=== PATIENT | female | born 1995 | race Two or more races ===

== ENCOUNTER 2016-05-27 12:10 | Emergency (ER) | payer OTHER ==
[~2016-05-27] VITALS: Ht 162.6 cm; Wt 78.0 kg
[~2016-05-27 12:10] MED LIST: PNV1TABL25 PO
[2016-05-27 12:45] VITALS: BP 134/87
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
[2016-05-27 13:13] LABS: NEG OBC UR NEG; POS OBC UR POS
[2016-05-27 13:19] LABS: BILIRUBIN,URINE NEGATIVE (NEG); GLUCOSE,URINE NEGATIVE (NEG); NITRITE,URINE NEGATIVE (NEG); PROTEIN,URINE NEGATIVE (NEG-TRACE)
[2016-05-27] MEDS ORDERED: HYDROCODONE/APAP 5/325MG TABLET. PO ONE (13:30)
[2016-05-27 13:38] LABS: BACTERIA,URINE FEW /HPF (0-FEW); RBC,URINE 0 /HPF (0-2); SQUAMOUS EPITHELIAL CELL,UR MOD /LPF; WBC,URINE 0 /HPF (0-4)
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
[2016-05-27] MEDS ORDERED: HYDR-971 PO (13:50)
[2016-05-27] MEDS ORDERED: ORPH100T PO (13:50)
== END 2016-05-27 13:53 | disposition home or self-care (01) ==
LOC: ER 12:10
DX: S16.1XXA Strain of muscle, fascia and tendon at neck level, initial encounter (principal); V43.53XA Car driver injured in collision with pick-up truck in traffic accident, initial encounter; Y92.413 State road as the place of occurrence of the external cause; Y93.89 Activity, other specified; Y99.8 Other external cause status
CPT/HCPCS: 72040; 81001; 81025; 99285

== ENCOUNTER 2016-09-30 11:59 | Emergency (ER) | payer OTHER ==
[~2016-09-30] VITALS: Ht 162.6 cm; Wt 79.4 kg
[~2016-09-30 11:59] MED LIST changes: +HYDR-971 PO; +ORPH100T PO
[2016-09-30 12:18] VITALS: BP 147/76
[2016-09-30] MEDS ORDERED: ETOMIDATE 20 MG/10 ML VIAL. IV ONE (13:00)
--- NOTE | 2016-09-30 13:31 | PHYS DOC ---
Past Medical History Past Medical History: No Pertinent History Past Surgical History: No Surgical History, Other Additional Past Surgical Histo: left foot surgery Alcohol Use: None Drug Use: None Adult General Chief Complaint Chief Complaint: MECHANICAL FALL HPI HPI Patient is a 21 year old female who presents with vaginal bleeding after a fall. The patient states last evening she slipped on a wet floor, fell backwards onto her buttocks. No syncope Denies head trauma or loss of consciousness. Denies any back pain. States last night she had light pink vaginal spotting which continued this morning. Has not had use any pads or tampons. Denies abdominal pain or cramping. LMP was 09/14. She thinks she could be . Reports history of irregular menses. Review of Systems Review of Systems Constitutional: Denies fever or chills HENT: Denies nasal congestion or sore throat Respiratory: Denies cough or shortness of breath Cardiovascular: Denies chest pain GI: Denies abdominal pain, nausea, vomiting, bloody stools : Denies dysuria or hematuria, reports vaginal bleeding Musculoskeletal: Denies back pain or joint pain Integument: Denies rash Neurologic: Denies headache Current Medications Current Medications Current Medications Medications (Trade) Dose Ordered Sig/Woodrow Start Time Stop Time Status Last Admin Dose Admin Etomidate (Amidate) 20 mg 1X ONCE 09/30/16 13:00 09/30/16 13:01 Cancel Allergies Allergies Allergies Coded Allergies Type Severity Reaction Last Updated Verified No Known Drug Allergies 07/09/13 No Physical Exam Physical Exam Constitutional: obese, no acute distress, non-toxic appearance. HENT: Normocephalic, atraumatic, bilateral external ears normal, oropharynx moist, nose normal. Eyes: conjunctiva normal, no discharge. Cardiovascular: RRR, no murmurs, no edema. Lungs & Thorax: LCTAB, no wheezing, no respiratory distress. Abdomen: soft, nontender, nondistended. : normal appearing female external genitalia, normal appearing cervix with closed os, no blood in vaginal vault or from the os, no CMT/adnexal tenderness Skin: Warm, dry, no erythema, no rash. Back: No CVA or spinal tenderness. Extremities: No tenderness, no edema. Neurologic: Alert and oriented X 3 Current Patient Data Vital Signs Vital Signs Date Time Temp Pulse Resp B/P (MAP) Pulse Ox O2 Delivery O2 Flow Rate FiO2 5/13/17 12:18 97.6 91 14 98 Room Air 97.6 Lab Values Laboratory Tests Test 09/30/16 11:28 09/30/16 12:10 POC Urine HCG, Qualitative Hcg negative (Negative) Urine Collection Type Unknown Urine Color Yellow Urine Clarity Clear Urine pH 5.5 Urine Specific [place] 1.020 Urine Protein Negative mg/dL (NEG-TRACE) Urine Glucose (UA) Negative mg/dL (NEG) Urine Ketones (Stick) Negative mg/dL (NEG) Urine Blood Large (NEG) Urine Nitrite Negative (NEG) Urine Bilirubin Negative (NEG) Urine Urobilinogen Dipstick 0.2 mg/dL (0.2 mg/dL) Urine Leukocyte Esterase Negative (NEG) Urine RBC 3-5 /HPF (0-2) Urine WBC Occ /HPF (0-4) Urine Squamous Epithelial Cells Mod /LPF Urine Bacteria Few /HPF (0-FEW) Urine Mucus Mod /LPF EKG EKG [] Radiology/Procedures Radiology/Procedures [] Course & Med Decision Making Course & Med Decision Making Pertinent Labs and Imaging studies reviewed. (See chart for details) The patient presents with vaginal bleeding after a fall. No significant bleeding seen on exam. test negative. No other injuries identified. Could be irregular bleeding related to menses. Recommend follow-up with Dr. Eddy in the gynecology clinic for other concerns. May retake home test if concern for remains. Return to the emergency department for heavy bleeding requiring use of greater than 1 pad per hour, severe abdominal pain, any otherwise worsening condition. Discharged home in stable condition. [] Dragon Disclaimer Dragon Disclaimer This electronic medical record was generated, in whole or in part, using a voice recognition dictation system. Departure Departure Impression: Primary Impression: Vaginal bleeding Disposition: HOME, SELF-CARE Condition: STABLE Referrals: RICHAR KELLY MD Patient Instructions: Metrorrhagia, [id number] Additional Instructions: You were seen in the emergency department today for vaginal bleeding after a fall. test was negative & there was no sign of serious injury. Follow up with Dr. Eddy in the gyncology clinic for other concerns. Come back for heavy bleeding requiring use of more than 1 pad per hour, severe abdominal pain, any otherwise worsening condition. BRUNILDA CRUZ MD September 30, 2016 13:31
[2016-09-30 13:38] LABS: BILIRUBIN,URINE NEGATIVE (NEG); GLUCOSE,URINE NEGATIVE (NEG); NITRITE,URINE NEGATIVE (NEG); PH,URINE 5.5; PROTEIN,URINE NEGATIVE (NEG-TRACE); UROBILINOGEN,URINE 0.2 mg/dL (0.2 mg/dL)
[2016-09-30 14:01] LABS: BACTERIA,URINE FEW /HPF (0-FEW); SQUAMOUS EPITHELIAL CELL,UR MOD /LPF; WBC,URINE OCC /HPF (0-4)
--- NOTE | 2016-10-04 10:29 | VNOTE ---
CALL BACK NOTE CALL BACK Microbiology 09/30/16 Wet Prep - Final, Complete Spoke with patient in regards to Chlamydia been positive. She was instructed that she was not treated here in the emergency department and Zithromax would need to be called in for her. She provided me the pharmacy is [facility] at [address] [place] [address]. Prescription was called in for her she was also provided information in regards to contacting her sexual partners in having been treated as well. She was also instructed to not have any sexual intercourse with her sexual partners for 2 weeks until after they've been treated. She was also instructed that she may not have sexual intercourse with anybody else for 2 weeks. Patient states understanding. PEGGY ZARATE FUGITIVE DETECTIVE October 04, 2016 10:29
== END 2016-09-30 14:25 | disposition home or self-care (01) ==
LOC: ER 12:43
DX: N93.9 Abnormal uterine and vaginal bleeding, unspecified (principal); W01.0XXA Fall on same level from slipping, tripping and stumbling without subsequent striking against object, initial encounter; Y93.89 Activity, other specified; Y99.8 Other external cause status; Y92.89 Other specified places as the place of occurrence of the external cause
CPT/HCPCS: 81001; 84703; 87491; 87591; 99284; Q0111; 81025

== ENCOUNTER → 2018-01-03 | Outpatient (CLI) | payer MEDICAID | END | disposition home or self-care (01) | LOC: LAB 12:51 | PROVIDERS: ATTEND Obstetrics & Gynecology | DX: N93.9 Abnormal uterine and vaginal bleeding, unspecified (principal) | CPT/HCPCS: 36415; 84702 ==

== ENCOUNTER → 2018-01-04 | Outpatient (CLI) | payer MEDICAID ==
[~2018-01-04] MED LIST changes: +IOHEXOL 180 MG/ML 10 ML VIAL. INT UTERIN ONE
--- NOTE | 2018-01-04 18:34 | KCIC ---
Hysterosalpingogram 01/04/2018 CLINICAL HISTORY: Infertility. Abnormal uterine bleeding. TECHNIQUE: After the risks and benefits of the procedure were explained to the patient, written informed consent was obtained. The patient was placed supine on the fluoroscopy table and a speculum was placed into the vagina. The external cervical os was identified and prepped using a Betadine solution. A 7 [place] HSG catheter was advanced into the endometrial canal of the uterus through the cervix and the balloon was inflated. 15 cc of Omnipaque 180 was then injected under fluoroscopic control. Following this study balloon was deflated and the catheter was removed as was the speculum. The patient tolerated the procedure well there were no immediate complications. The total fluoroscopic time for this study was 52 seconds. 7 digital spot radiographs were obtained. FINDINGS: The endometrial canal is within normal limits in morphology and configuration. No filling defect is seen. Both fallopian tubes are well-visualized. Free spillage of contrast into the peritoneal cavity is seen bilaterally. IMPRESSION: Negative study. Electronically signed by: Fei Posada MD (01/04/2018 6:30 PM) [id number]
== END | disposition home or self-care (01) ==
LOC: KCIC 08:58
PROVIDERS: ATTEND Obstetrics & Gynecology
DX: N93.8 Other specified abnormal uterine and vaginal bleeding (principal); N97.8 Female infertility of other origin
CPT/HCPCS: 74400; Q9965

== ENCOUNTER 2018-03-25 13:00 | Emergency (ER) | payer MEDICAID, OTHER ==
[~2018-03-25] VITALS: Ht 165.1 cm; Wt 72.1 kg
[~2018-03-25 13:00] MED LIST changes: -IOHEXOL 180 MG/ML 10 ML VIAL. INT UTERIN ONE
[2018-03-25 13:19] VITALS: BP 118/74
[2018-03-25] MEDS ORDERED: CIPR7.5D EACH EAR (14:20)
--- NOTE | 2018-03-25 14:20 | PHYS DOC ---
Past Medical History Past Medical History: No Pertinent History Past Surgical History: No Surgical History, Other Additional Past Surgical Histo: left foot surgery Alcohol Use: None Drug Use: None Adult General Chief Complaint Chief Complaint: FOREIGNBODY EAR HPI HPI Patient is a 22 year old female who presents with a bug crawling in her ear at 0400 this morning. Patient complains of right ear pain. Patient states they tried to flush it out with water. Review of Systems Review of Systems Constitutional: Denies fever or chills [] Eyes: Denies change in visual acuity, redness, or eye pain [] HENT: Denies nasal congestion or sore throat. Insect in right ear causing pain.[ ] Respiratory: Denies cough or shortness of breath [] Cardiovascular: No additional information not addressed in HPI [] GI: Denies abdominal pain, nausea, vomiting, bloody stools or diarrhea [] : Denies dysuria or hematuria [] Musculoskeletal: Denies back pain or joint pain [] Integument: Denies rash or skin lesions [] Neurologic: Denies headache, focal weakness or sensory changes [] Endocrine: Denies polyuria or polydipsia [] All other systems were reviewed and found to be within normal limits, except as documented in this note. Allergies Allergies Allergies Coded Allergies Type Severity Reaction Last Updated Verified No Known Drug Allergies 07/09/13 No Physical Exam Physical Exam Constitutional: Well developed, well nourished, no acute distress, non-toxic appearance. [] HENT: Normocephalic, atraumatic, bilateral external ears normal, oropharynx moist, no oral exudates, nose normal. Brown bug seen in right eat canal. Unable to see behind the bug. [] Eyes: PERRLA, EOMI, conjunctiva normal, no discharge. [] Neck: Normal range of motion, no tenderness, supple, no stridor. [] Cardiovascular:Heart rate regular rhythm, no murmur [] Lungs & Thorax: Bilateral breath sounds clear to auscultation [] Abdomen: Bowel sounds normal, soft, no tenderness, no masses, no pulsatile masses. [] Skin: Warm, dry, no erythema, no rash. [] Back: No tenderness, no CVA tenderness. [] Extremities: No tenderness, no cyanosis, no clubbing, ROM intact, no edema. [] Neurologic: Alert and oriented X 3, normal motor function, normal sensory function, no focal deficits noted. [] Psychologic: Affect normal, judgement normal, mood normal. [] Current Patient Data Vital Signs Vital Signs Date Time Temp Pulse Resp B/P (MAP) Pulse Ox O2 Delivery O2 Flow Rate FiO2 03/25/18 13:19 97.8 61 18 118/74 (89) 98 Room Air 97.8 EKG EKG [] Radiology/Procedures Radiology/Procedures [] Course & Med Decision Making Course & Med Decision Making Patient is a 22 year old female who presents with a bug crawling in her ear at 0400 this morning. Patient complains of right ear pain. Patient states they tried to flush it out with water. Upon examination the patient's right ear has a brown bug inside of it. It appears to be and is not moving. Patient's right ear is flushed by the nurse with diluted hydrogen peroxide with water. After flushing of the ear the bug is no longer seen in the tympanic membrane is pearly white in color. The patient ear canal is red and irritated and very painful upon examination. The nurses nor I saw the bug, out of the ear that is not seen in the ear canal any longer. Dr. Carroll then examined the ear did not see the bug. Patient is given anabiotic eardrops as a follow-up with her primary care within the next couple days to make sure she is getting better. Staff Physician Addendum: I was working in the ER during the course of this patient's visit. I was available for consultation as needed, but I was not directly involved in the care of this patient. [] Dragon Disclaimer Dragon Disclaimer This electronic medical record was generated, in whole or in part, using a voice recognition dictation system. Departure Departure Impression: Primary Impression: Acute foreign body of ear Disposition: 01 HOME, SELF-CARE Condition: STABLE Referrals: ALYCE VELASCO Jr, MD (PCP) Patient Instructions: Ear Foreign Body Additional Instructions: FOLLOW UP WITH YOUR PRIMARY CARE IF NOT GETTING BETTER. TAKE MEDICATION PRESCRIBED. Scripts Ciprofloxacin Hcl/Dexameth (CIPRODEX OTIC SUSPENSION) 7.5 Ml Drops.susp 4 DROP EACH EAR BID for 7 Days, #1 BOTTLE Prov: DANIEL COPELANDALISSON Jeff APRN 03/25/18 Problem Qualifiers Primary Impression: Acute foreign body of ear Encounter type: initial encounter Laterality: right Qualified Codes: T16.1XXA - Foreign body in right ear, initial encounter PEGGY COPELAND APRN Mar 25, 2018 14:20 GONZÁLEZ CARROLL MD Mar 29, 2018 06:41
== END 2018-03-25 14:33 | disposition home or self-care (01) ==
LOC: ER 13:00
DX: T16.1XXA Foreign body in right ear, initial encounter (principal); X58.XXXA Exposure to other specified factors, initial encounter; Y93.89 Activity, other specified; Y92.89 Other specified places as the place of occurrence of the external cause; Y99.8 Other external cause status
CPT/HCPCS: 99283; 99284

== ENCOUNTER 2018-09-05 13:19 | Emergency (ER) | payer OTHER ==
[~2018-09-05] VITALS: Ht 162.6 cm; Wt 74.8 kg
[~2018-09-05 13:19] MED LIST changes: +CIPR7.5D EACH EAR; +HYDR-3164 PO; -HYDR-971 PO
[2018-09-05 14:01] LABS: BILIRUBIN,URINE NEGATIVE (NEG); CLARITY,URINE CLOUDY; COLOR,URINE YELLOW; NITRITE,URINE NEGATIVE (NEG); PROTEIN,URINE NEGATIVE (NEG-TRACE)
[2018-09-05 14:08] LABS: BARBITURATES NEG (NEG); BENZODIAZEPINES NEG (NEG); CANNABINOIDS NEG (NEG); COCAINE NEG (NEG); METHADONE NEG (NEG); OPIATES NEG (NEG); PHENCYCLIDINE NEG (NEG)
[2018-09-05 14:09] LABS: AMPHETAMINE/METHAMPHETAMINE NEG (NEG)
[2018-09-05 14:10] LABS: AMORPHOUS SEDIMENT,UR PRESENT /HPF; BACTERIA,URINE 0 /HPF (0-FEW); RBC,URINE 0 /HPF (0-2); SQUAMOUS EPITHELIAL CELL,UR MOD /LPF; WBC,URINE 0 /HPF (0-4)
--- NOTE | 2018-09-05 14:52 | RAD ---
Early OB ultrasound study less than 14 weeks-transabdominal and transvaginal exam Clinical indications: . Abdominal pain and cramping. Transabdominal sonography: The uterus is anteverted in position. No intrauterine gestational sac is evident. Therefore, transvaginal sonography will be performed. Neither ovary is visualized by transabdominal exam. No adnexal mass is seen. Transvaginal sonography: Within the fundal portion of the uterus, a round fluid collection with an echogenic rim is seen. This may represent an early gestational sac of approximately 5 weeks gestation. No pole or heartbeat is seen. However, a small yolk sac is seen. The endometrium is thickened due to state. No uterine mass or fibroid is seen. A small amount of physiologic free fluid is seen within the cul-de-sac. The left ovary is normal and measures 2.8 cm and 1.7 cm and 2.4 cm in size. The right ovary measures 1.9 cm and 3.0 cm and 2.3 cm in size. There is a small paraovarian cyst measuring 12 mm. Color Doppler flow is seen within the right ovary. No adnexal mass is seen. IMPRESSION: Intrauterine gestational sac is seen containing a yolk sac at this point in time and therefore approximate gestational age is 5 weeks. No pole or heartbeat is seen yet. Therefore, recommend correlation with serial quantitative beta-hCG studies. Electronically signed by: Jan Dockery MD (09/05/2018 2:49 PM) [id number]
--- NOTE | 2018-09-05 15:38 | PHYS DOC ---
Past Medical History Past Medical History: No Pertinent History Past Surgical History: No Surgical History, Other Additional Past Surgical Histo: left foot surgery Alcohol Use: None Drug Use: None Adult General Chief Complaint Chief Complaint: PELVIC PAIN HPI HPI Patient is a 23 year old female with no significant medical history who presents to the ED today complaining of mild pelvic cramping that began 2 days ago. She states 2 days ago she did a test at home which was positive. She states she repeated the test again which was positive. Her last menstrual cycle was around the beginning of July. Patient denies any vaginal bleeding. She is a 2 para 1. Denies any fever, urgency frequency dysuria. Review of Systems Review of Systems Constitutional: Denies fever or chills [] Eyes: Denies change in visual acuity, redness, or eye pain [] HENT: Denies nasal congestion or sore throat [] Respiratory: Denies cough or shortness of breath [] Cardiovascular: No additional information not addressed in HPI [] GI: Reports pelvic cramping, denies nausea, vomiting, bloody stools or diarrhea [] : Denies dysuria or hematuria [] Musculoskeletal: Denies back pain or joint pain [] Integument: Denies rash or skin lesions [] Neurologic: Denies headache, focal weakness or sensory changes [] All other systems were reviewed and found to be within normal limits, except as documented in this note. Allergies Allergies Allergies Coded Allergies Type Severity Reaction Last Updated Verified No Known Drug Allergies 07/09/13 No Physical Exam Physical Exam Constitutional: Well developed, well nourished, no acute distress, non-toxic appearance. [] HENT: Normocephalic, atraumatic, bilateral external ears normal, oropharynx moist, no oral exudates, nose normal. [] Eyes: PERRLA, EOMI, conjunctiva normal, no discharge. [] Neck: Normal range of motion, no tenderness, supple, no stridor. [] Cardiovascular:Heart rate regular rhythm, no murmur [] Lungs & Thorax: Bilateral breath sounds clear to auscultation [] Abdomen: Bowel sounds normal, soft, no tenderness, no masses, no pulsatile masses. [] Patient refused pelvic exam Skin: Warm, dry, no erythema, no rash. [] Back: No tenderness, no CVA tenderness. [] Extremities: No tenderness, no cyanosis, no clubbing, ROM intact, no edema. [] Neurologic: Alert and oriented X 3, normal motor function, normal sensory function, no focal deficits noted. [] Psychologic: Affect normal, judgement normal, mood normal. [] Current Patient Data Vital Signs Vital Signs Date Time Temp Pulse Resp B/P (MAP) Pulse Ox O2 Delivery O2 Flow Rate FiO2 09/05/18 13:39 98.0 60 16 138/71 (93) 99 Room Air 98.0 Lab Values Laboratory Tests Test 09/05/18 13:31 09/05/18 13:52 Urine Collection Type Unknown Urine Color Yellow Urine Clarity Cloudy Urine pH 8.0 Urine Specific [place] 1.025 Urine Protein Negative mg/dL (NEG-TRACE) Urine Glucose (UA) Negative mg/dL (NEG) Urine Ketones (Stick) Negative mg/dL (NEG) Urine Blood Negative (NEG) Urine Nitrite Negative (NEG) Urine Bilirubin Negative (NEG) Urine Urobilinogen Dipstick 1.0 mg/dL (0.2 mg/dL) Urine Leukocyte Esterase Negative (NEG) Urine RBC 0 /HPF (0-2) Urine WBC 0 /HPF (0-4) Urine Squamous Epithelial Cells Mod /LPF Urine Amorphous Sediment Present /HPF Urine Bacteria 0 /HPF (0-FEW) Urine Mucus Marked /LPF Maternal Serum HCG Beta Subunit 8210 mIU/mL (0-5) H Urine Opiates Screen Neg (NEG) Urine Methadone Screen Neg (NEG) Urine Barbiturates Neg (NEG) Urine Phencyclidine Screen Neg (NEG) Urine Amphetamine/Methamphetamine Neg (NEG) Urine Benzodiazepines Screen Neg (NEG) Urine Cocaine Screen Neg (NEG) Urine Cannabinoids Screen Neg (NEG) Ethyl Alcohol Level < 10 mg/dL (0-10) Urine Ethyl Alcohol Neg (NEG) POC Urine HCG, Qualitative Hcg positive (Negative) EKG EKG [] Radiology/Procedures Radiology/Procedures []PROCEDURE: OB <14 WKS W/TV Early OB ultrasound study less than 14 weeks-transabdominal and transvaginal exam Clinical indications: . Abdominal pain and cramping. Transabdominal sonography: The uterus is anteverted in position. No intrauterine gestational sac is evident. Therefore, transvaginal sonography will be performed. Neither ovary is visualized by transabdominal exam. No adnexal mass is seen. Transvaginal sonography: Within the fundal portion of the uterus, a round fluid collection with an echogenic rim is seen. This may represent an early gestational sac of approximately 5 weeks gestation. No pole or heartbeat is seen. However, a small yolk sac is seen. The endometrium is thickened due to state. No uterine mass or fibroid is seen. A small amount of physiologic free fluid is seen within the cul-de-sac. The left ovary is normal and measures 2.8 cm and 1.7 cm and 2.4 cm in size. The right ovary measures 1.9 cm and 3.0 cm and 2.3 cm in size. There is a small paraovarian cyst measuring 12 mm. Color Doppler flow is seen within the right ovary. No adnexal mass is seen. IMPRESSION: Intrauterine gestational sac is seen containing a yolk sac at this point in time and therefore approximate gestational age is 5 weeks. No pole or heartbeat is seen yet. Therefore, recommend correlation with serial quantitative beta-hCG studies. Electronically signed by: Chantal Dockery MD (09/05/2018 2:49 PM) [id number] DICTATED and SIGNED BY: CHANTAL DOCKERY MD DATE: 09/05/18 1449 Course & Med Decision Making Course & Med Decision Making Pertinent Labs and Imaging studies reviewed. (See chart for details) This is a 23-year-old female patient presenting to the ED today complaining of pelvic cramping that began 2 days ago, she had a positive test 2 days ago at home, she is a 2 para 1. Positive urine hCG in the ED, beta-hCG 8210. Patient refuses pelvic, urine analysis is negative for infection. OB ultrasound-Intrauterine gestational sac is seen containing a yolk sac at this point in time and therefore approximate gestational age is 5 weeks. No pole or heartbeat is seen yet. Therefore, recommend correlation with serial quantitative beta-hCG studies. vitamins recommended Patient is in no distress. Be discharged to home. Follow-up with [facility]. Requested to maintain pelvic rest. Tylenol for pain. Provided return precautions. Dragon Disclaimer Dragon Disclaimer This electronic medical record was generated, in whole or in part, using a voice recognition dictation system. Departure Departure Impression: Primary Impression: Abdominal pain in Additional Impression: Disposition: HOME, SELF-CARE Condition: STABLE Referrals: ALYCE VELASCO Jr, MD (PCP) follow up in 1-2 weeks Patient Instructions: ABCs of , Abdominal Pain During Additional Instructions: You were seen in the emergency room for abdominal pain in . Please maintain pelvic rest, no sex, no strenuous activities until seen by the [facility]. Take Tylenol as needed for pain. Contact your [facility] and follow-up. Start taking vitamins Problem Qualifiers Primary Impression: Abdominal pain in Trimester: first trimester Qualified Codes: O26.891 - Other specified related conditions, first trimester; R10.9 - Unspecified abdominal pain Additional Impression: Weeks of gestation: less than 8 weeks Qualified Codes: Z3A.01 - Less than 8 weeks gestation of ORLY LOOMIS [employer] Sep 05, 2018 15:38
[2018-09-05 15:42] LABS: BASO % 0 % (0-3); EOS # 0.1 x10^3/uL (0.0-0.7); EOS % 2 % (0-3); HEMATOCRIT 40.7 % (36.0-47.0); HEMOGLOBIN 13.5 g/dL (12.0-15.5); LYMPH # 1.6 x10^3/uL (1.0-4.8); LYMPH % 24 % (24-48); MEAN CORPUSCULAR HEMOGLOBIN 29 pg (25-35); MEAN CORPUSCULAR HGB CONC 33 g/dL (31-37); MEAN CORPUSCULAR VOLUME 87 fL (79-100); MONO # 0.4 x10^3/uL (0.0-1.1); MONO % 6 % (0-9); NEUT # 4.5 x10^3uL (1.8-7.7); NEUT % 68 % (31-73); PLATELET COUNT 260 x10^3/uL (140-400); RED BLOOD COUNT 4.68 x10^6/uL (3.50-5.40); RED CELL DISTRIBUTION WIDTH 13.9 % (11.5-14.5); WHITE BLOOD COUNT 6.6 x10^3/uL (4.0-11.0)
[2018-09-05 15:43] LABS: CALCIUM 9.5 mg/dL (8.5-10.1); CREATININE 0.7 mg/dL (0.6-1.0); GFR 104.6; POTASSIUM 3.8 mmol/L (3.5-5.1)
[2018-09-05 15:50] LABS: ALBUMIN 3.9 g/dL (3.4-5.0); ALBUMIN/GLOBULIN RATIO 1.1 (1.0-1.7); TOTAL BILIRUBIN 0.3 mg/dL (0.2-1.0); TOTAL PROTEIN 7.5 g/dL (6.4-8.2)
[2018-09-05 16:00] VITALS: BP 127/74
== END 2018-09-05 17:00 | disposition home or self-care (01) ==
LOC: ER 13:19
DX: O26.891 Other specified pregnancy related conditions, first trimester (principal); R10.9 Unspecified abdominal pain; R10.2 Pelvic and perineal pain; Z3A.01 Less than 8 weeks gestation of pregnancy
CPT/HCPCS: 36415; 76801; 76817; 80053; 80307; 81001; 81025; 84702; 85025; 99285; G0480

== ENCOUNTER → 2018-12-19 | Outpatient (CLI) | payer MEDICAID ==
--- NOTE | 2018-12-19 12:51 | RAD ---
EXAM: Obstetrics sonogram. HISTORY: Size and and dates discrepancy. TECHNIQUE: Sonographic imaging of a gravid uterus was performed. COMPARISON: 09/05/2018. FINDINGS: There is a single intrauterine fetus in variable presentation with a heart rate of 139 bpm. There is three-vessel umbilical cord with normal insertion. There is body motion. There is a right lateral anterior placenta without evidence of placental previa. The stomach, kidneys, bladder, spine, brain, facial profile, extremities and heart are unremarkable. The biparietal diameter is 4.93 cm, corresponding with 20 weeks and 6 days. The head circumference is 17.84 cm, corresponding with 20 weeks and 2 days. The abdominal circumference is 15.43 cm, corresponding with 20 weeks and 4 days. The femoral length is 3.42 cm, corresponding with 20 weeks and 5 days. The estimated gestational age patient combined ultrasound measurements is 20 weeks and 4 days. The estimated due date is 05/04/2018. The estimated weight is 368 g. The estimated gestational age based on LMP is 20 weeks and 5 days. The cervix is closed and measures 6.1 cm in length. IMPRESSION: Single intrauterine fetus with an estimated gestational age based on ultrasound measurements of 20 weeks and 4 days and normal heart rate of 139 bpm. The gestational age based on LMP is 20 weeks and 5 days. Electronically signed by: Sylvie Alcaraz MD (12/19/2018 12:49 PM) [place] [id number]
== END | disposition home or self-care (01) ==
LOC: US 10:38
PROVIDERS: ATTEND Obstetrics & Gynecology
DX: O26.842 Uterine size-date discrepancy, second trimester (principal); Z3A.20 20 weeks gestation of pregnancy
CPT/HCPCS: 76805

== ENCOUNTER → 2019-02-07 | Outpatient (CLI) | payer MEDICAID ==
[2019-02-07 13:00] LABS: BASO % 0 % (0-3); EOS # 0.1 x10^3/uL (0.0-0.7); EOS % 1 % (0-3); HEMATOCRIT 32.6 % (36.0-47.0); HEMOGLOBIN 11.5 g/dL (12.0-15.5); LYMPH % 18 % (24-48); MEAN CORPUSCULAR HEMOGLOBIN 31 pg (25-35); MEAN CORPUSCULAR HGB CONC 35 g/dL (31-37); MEAN CORPUSCULAR VOLUME 88 fL (79-100); MONO # 0.3 x10^3/uL (0.0-1.1); MONO % 6 % (0-9); NEUT # 4.1 x10^3/uL (1.8-7.7); NEUT % 76 % (31-73); PLATELET COUNT 233 x10^3/uL (140-400); RED BLOOD COUNT 3.71 x10^6/uL (3.50-5.40); RED CELL DISTRIBUTION WIDTH 13.2 % (11.5-14.5); WHITE BLOOD COUNT 5.4 x10^3/uL (4.0-11.0)
== END | disposition home or self-care (01) ==
LOC: LAB 11:39
PROVIDERS: ATTEND Obstetrics & Gynecology
DX: O09.90 Supervision of high risk pregnancy, unspecified, unspecified trimester (principal)
CPT/HCPCS: 36415; 82950; 85025

== ENCOUNTER → 2019-02-18 | Outpatient (CLI) | payer MEDICAID | END | disposition home or self-care (01) | LOC: LAB 10:13 | PROVIDERS: ATTEND Obstetrics & Gynecology | DX: O09.90 Supervision of high risk pregnancy, unspecified, unspecified trimester (principal); Z3A.00 Weeks of gestation of pregnancy not specified | CPT/HCPCS: 36415; 82947; 82950 ==

== ENCOUNTER 2019-04-14 21:28 | Observation (INO) | payer MEDICAID ==
[2019-04-14 21:48] LABS: BILIRUBIN,URINE NEGATIVE (NEG); CLARITY,URINE CLOUDY; COLOR,URINE YELLOW; NITRITE,URINE NEGATIVE (NEG); PROTEIN,URINE NEGATIVE (NEG-TRACE)
[2019-04-14 21:54] LABS: BARBITURATES NEG (NEG); BENZODIAZEPINES NEG (NEG); CANNABINOIDS NEG (NEG); COCAINE NEG (NEG); METHADONE NEG (NEG); OPIATES NEG (NEG); PHENCYCLIDINE NEG (NEG)
[2019-04-14 21:56] LABS: BACTERIA,URINE FEW /HPF (0-FEW); RBC,URINE OCC /HPF (0-2); SQUAMOUS EPITHELIAL CELL,UR MOD /LPF
[2019-04-14] MEDS ORDERED: IV RINGERS,LACTATED 1000ML 1,000 ML IV SCH (22:00)
[2019-04-14 22:08] LABS: AMPHETAMINE/METHAMPHETAMINE NEG (NEG)
== END 2019-04-14 22:39 | disposition home or self-care (01) ==
LOC: 3 SO LND 21:28
PROVIDERS: ADMIT Obstetrics & Gynecology; ATTEND Obstetrics & Gynecology
DX: O36.8130 Decreased fetal movements, third trimester, not applicable or unspecified (principal); Z3A.36 36 weeks gestation of pregnancy
CPT/HCPCS: 80307; 81001; 87086; G0378; G0379

== ENCOUNTER 2019-11-06 10:27 | Emergency (ER) | payer MEDICAID ==
[~2019-11-06] VITALS: Ht 162.6 cm; Wt 81.8 kg
[~2019-11-06 10:27] MED LIST changes: +DOCU-153 PO; +IBUP-1027 PO; +OXYC1TAB15 PO
[2019-11-06 10:57] LABS: BILIRUBIN,URINE NEGATIVE (NEG); CLARITY,URINE CLEAR; COLOR,URINE YELLOW; NITRITE,URINE NEGATIVE (NEG); PROTEIN,URINE NEGATIVE (NEG-TRACE); UROBILINOGEN,URINE 0.2 mg/dL (0.2 mg/dL)
[2019-11-06 11:18] LABS: BASO % 1 % (0-3); EOS # 0.1 x10^3/uL (0.0-0.7); EOS % 1 % (0-3); HEMATOCRIT 37.1 % (36.0-47.0); LYMPH # 1.6 x10^3/uL (1.0-4.8); LYMPH % 23 % (24-48); MEAN CORPUSCULAR HEMOGLOBIN 29 pg (25-35); MEAN CORPUSCULAR HGB CONC 35 g/dL (31-37); MEAN CORPUSCULAR VOLUME 83 fL (79-100); MONO # 0.4 x10^3/uL (0.0-1.1); MONO % 6 % (0-9); NEUT # 4.7 x10^3/uL (1.8-7.7); NEUT % 69 % (31-73); PLATELET COUNT 257 x10^3/uL (140-400); RED CELL DISTRIBUTION WIDTH 14.5 % (11.5-14.5); WHITE BLOOD COUNT 6.8 x10^3/uL (4.0-11.0)
[2019-11-06 11:23] LABS: SQUAMOUS EPITHELIAL CELL,UR MOD /LPF
[2019-11-06 11:24] LABS: BACTERIA,URINE FEW /HPF (0-FEW); RBC,URINE 0 /HPF (0-2)
[2019-11-06 11:30] VITALS: BP 116/67
--- NOTE | 2019-11-06 12:04 | RAD ---
PREG 1ST TRIMESTER DATE: 11/06/2019 10:33 AM INDICATION: vaginal bleeding, . LMP 08/25/2019 COMPARISON: None. TECHNIQUE: Transabdominal ultrasonography of the pelvis was performed. Color Doppler and duplex were utilized as appropriate. FINDINGS: The uterus measures 9.9 x 7.4 x 6.5 cm. Cervix is not well visualized. There is living intrauterine gestation with heart rate of 135 beats per minute. There is small yolk sac present. Gestational sac measures 3.12 cm, which corresponds to 8 weeks 3 days gestation. [place]-rump length measurement of 0.54 cm corresponds with estimated ultrasound gestational age of 6 weeks and 2 days. There is no free pelvic fluid. The right ovary is not visualized. The left ovary measures 1.8 x 1.5 x 1.7 cm. No evidence of left ovarian torsion. There is normal blood flow to the left ovary by color Doppler with arterial and venous waveforms detected. IMPRESSION: 1. Single living intrauterine gestation. 2. [place]-rump length corresponds with estimated ultrasound gestational age of 6 weeks and 2 days. Gestational sac measurement corresponds to 8 weeks 3 days gestational age. 3. Right ovary not visualized. Normal left ovary. Electronically signed by: Flako Garcia MD (11/06/2019 12:01 PM) [id number]
[2019-11-06] MEDS ORDERED: NITR100C62 PO (12:33)
--- NOTE | 2019-11-06 13:10 | PHYS DOC ---
Past Medical History Past Medical History: No Pertinent History Past Surgical History: Other Additional Past Surgical Histo: left foot surgery Smoking Status: Never Smoker Alcohol Use: None Drug Use: None General Adult EDM: Chief Complaint: VAGINAL BLEEDING HPI: HPI: Patient is a 24 year old female who presents with vaginal bleeding during . This started this morning. She has not had any complications during this previously. She denies any vaginal discharge. She denies any trauma or recent intercourse. She has not had an ultrasound during this . Review of Systems: Review of Systems: General: Denies fever, chills, sweats, fatigue Eyes: Denies drainage, blurred vision HENT: Denies rhinorrhea, sore throat Respiratory: Denies cough, shortness of breath, wheezing Cardiac: Denies edema, palpitations, chest pain GI: Denies abdominal pain, N/V reports vaginal bleeding MSK: Denies back pain, neck pain Skin: Denies rash, jaundice Neuro: Denies headache, dizziness Psychiatric: Denies SI/HI Heart Score: Risk Factors: Risk Factors: DM, Current or recent (<one month) smoker, HTN, HLP, family history of CAD, obesity. Risk Scores: Score 0 - 3: 2.5% MACE over next 6 weeks - Discharge Home Score 4 - 6: 20.3% MACE over next 6 weeks - Admit for Clinical Observation Score 7 - 10: 72.7% MACE over next 6 weeks - Early Invasive Strategies Allergies: Allergies: Allergies Coded Allergies Type Severity Reaction Last Updated Verified No Known Drug Allergies 07/09/13 No Physical Exam: PE: Constitutional: Well developed, well nourished, Cooperative, NAD, non-toxic appearing HEENT: Normocephalic, atraumatic, oropharynx moist, EOMI, PERRL, no drainage f rom eyes, normal conjunctiva Neck: Supple, normal range of motion, no stridor Cardiovascular: RRR, 2+ radial pulses bilaterally, no edema Respiratory: CTA bilaterally, no respiratory distress, no wheezing/crackles Abdomen: Soft, nontender, nondistended, no masses Skin: Warm, dry, intact Extremities: No obvious deformities Neurologic: Alert and Oriented x3, motor and sensory function grossly normal, no focal deficits Psychologic: Normal affect, normal judgment, normal mood. No SI/HI Current Patient Data: Labs: Laboratory Tests Test 11/06/19 10:30 11/06/19 10:58 Urine Collection Type Unknown Urine Color Yellow Urine Clarity Clear Urine pH 7.0 (<5.0-8.0) Urine Specific [place] 1.015 (1.000-1.030) Urine Protein Negative mg/dL (NEG-TRACE) Urine Glucose (UA) Negative mg/dL (NEG) Urine Ketones (Stick) Negative mg/dL (NEG) Urine Blood Large (NEG) Urine Nitrite Negative (NEG) Urine Bilirubin Negative (NEG) Urine Urobilinogen Dipstick 0.2 mg/dL (0.2 mg/dL) Urine Leukocyte Esterase Small (NEG) Urine RBC 0 /HPF (0-2) Urine WBC 11-20 /HPF (0-4) Urine Squamous Epithelial Cells Mod /LPF Urine Bacteria Few /HPF (0-FEW) Urine Mucus Mod /LPF White Blood Count 6.8 x10^3/uL (4.0-11.0) Red Blood Count 4.50 x10^6/uL (3.50-5.40) Hemoglobin 13.0 g/dL (12.0-15.5) Hematocrit 37.1 % (36.0-47.0) Mean Corpuscular Volume 83 fL (79-100) Mean Corpuscular Hemoglobin 29 pg (25-35) Mean Corpuscular Hemoglobin Concent 35 g/dL (31-37) Red Cell Distribution Width 14.5 % (11.5-14.5) Platelet Count 257 x10^3/uL (140-400) Neutrophils (%) (Auto) 69 % (31-73) Lymphocytes (%) (Auto) 23 % (24-48) L Monocytes (%) (Auto) 6 % (0-9) Eosinophils (%) (Auto) 1 % (0-3) Basophils (%) (Auto) 1 % (0-3) Neutrophils # (Auto) 4.7 x10^3/uL (1.8-7.7) Lymphocytes # (Auto) 1.6 x10^3/uL (1.0-4.8) Monocytes # (Auto) 0.4 x10^3/uL (0.0-1.1) Eosinophils # (Auto) 0.1 x10^3/uL (0.0-0.7) Basophils # (Auto) 0.0 x10^3/uL (0.0-0.2) Laboratory Tests 11/06/19 10:58 Vital Signs: Vital Signs Date Time Temp Pulse Resp B/P (MAP) Pulse Ox O2 Delivery O2 Flow Rate FiO2 11/06/19 11:30 66 116/67 (83) 99 Room Air 11/06/19 10:37 98.1 16 98.1 EKG: EKG: [] Radiology/Procedures: Radiology/Procedures: [] Course & Med Decision Making: Course & Med Decision Making Pertinent Labs and Imaging studies reviewed. (See chart for details) Patient is a 24 year-old who presents to the Emergency Room with vaginal bleeding and cramping. Patient has not seen passage of tissue. She has not had a formal ultrasound and does not have a confirmed IUP. UA, Rh type, OB ultrasound, test were ordered. At this time, ultrasound shows IUP. Patient does not need rhogam. I have discussed with the patient that they are likely have a threatened . We have discussed early on in we are unable to prevent miscarriages. We will discussed pelvic rest until she fo llows up with OBGYN. She will return to the Emergency Room if she has a large amount of bleeding, syncope, SOB. Patient's test results and vitals while in the ED were fully reviewed and discussed with the patient. Patient is stable and at this time does not need admission to the hospital. We have discussed strict return precautions and the importance of following up with their Primary Care Physician. Patient stated understanding and was given an opportunity to ask any questions. Dragon Disclaimer: Dragon Disclaimer: This electronic medical record was generated, in whole or in part, using a voice recognition dictation system. Departure Departure Impression: Primary Impression: Threatened Disposition: HOME, SELF-CARE Condition: GOOD Patient Instructions: Threatened Miscarriage, [id number] Scripts Nitrofurantoin Monohyd/M-Cryst (MACROBID 100 MG CAPSULE) 100 Mg Capsule 1 CAP PO BID for 7 Days, #14 CAP 0 Refills Prov: FELY PINEDA MD 11/06/19 Justicifation of Admission Dx: Justifications for Admission: Justification of Admission Dx: No FELY PINEDA MD Nov 06, 2019 13:10
== END 2019-11-06 12:37 | disposition home or self-care (01) ==
LOC: ER 10:27
DX: O20.0 Threatened abortion (principal); Z98.890 Other specified postprocedural states; Z3A.00 Weeks of gestation of pregnancy not specified
CPT/HCPCS: 36415; 76801; 81001; 81025; 85025; 86900; 86901; 99284

== ENCOUNTER → 2020-02-09 | Outpatient (CLI) | payer MEDICAID ==
[~2020-02-09] MED LIST changes: +NITR100C62 PO
--- NOTE | 2020-02-10 09:53 | RAD ---
Examination: PREG MORE THAN OR EQ TO 14 WKS History: ut size/date discrepancy Comparison/Correlation: 11/06/2019 ultrasound exam Findings: OB ultrasound exam was performed. Single intrauterine breech lie gestation is present. Grade 1 placenta which is at the posterior fundal location is present. movement is normal. Cardiac activity is 144 beats per minute. Four-chamber heart noted. 3 vessel cord noted. Insertion of the cord is noted. Fluid in the urinary bladder is seen. Stomach, bilateral kidneys, spine, and breathing identified. Biparietal diameter of 4.69 cm corresponding to 20 weeks 1 day. Estimated circumference of 17.85 cm corresponding to 20 weeks 2 days. Abdominal circumference of 15.19 cm corresponding to 20 weeks 3 days. Femur length is 3.65 cm which corresponds to 21 weeks 4 days. Head circumference to abdominal circumference ratio is 1.18. Estimated weight is 382 g. Male gender is noted. Average ultrasound age of 20 weeks 4 days is seen with EDC of 06/24/2020. Maternal cervical length is 3.8 cm visualized. Maternal ovaries are not visualized on this exam. Impression: Single living intrauterine gestation with average ultrasound age of 20 weeks 4 days. This is 3 weeks and 3 days less than expected by clinical age. No suspicious findings. Electronically signed by: Rick Jarquin MD (02/10/2020 9:50 AM) [id number]
== END | disposition home or self-care (01) ==
LOC: US 10:54
PROVIDERS: ATTEND Obstetrics & Gynecology
DX: O26.842 Uterine size-date discrepancy, second trimester (principal); Z3A.20 20 weeks gestation of pregnancy
CPT/HCPCS: 76805

== ENCOUNTER 2020-04-27 13:43 | Observation (INO) | payer MEDICAID ==
[2020-04-27] MEDS ORDERED: IV RINGERS,LACTATED 1000ML 1,000 ML IV SCH (14:15)
[2020-04-27 14:21] LABS: BILIRUBIN,URINE NEGATIVE (NEG); CLARITY,URINE CLEAR; COLOR,URINE YELLOW; NITRITE,URINE NEGATIVE (NEG); PH,URINE 7.5 (<5.0-8.0); PROTEIN,URINE NEGATIVE (NEG-TRACE)
[2020-04-27 14:44] LABS: BACTERIA,URINE 0 /HPF (0-FEW); RBC,URINE 0 /HPF (0-2); WBC,URINE OCC /HPF (0-4)
== END 2020-04-27 16:27 | disposition home or self-care (01) ==
LOC: 3 SO LND 13:43
PROVIDERS: ADMIT Obstetrics & Gynecology; ATTEND Obstetrics & Gynecology
DX: O26.893 Other specified pregnancy related conditions, third trimester (principal); R10.31 Right lower quadrant pain; R10.32 Left lower quadrant pain; Z3A.31 31 weeks gestation of pregnancy
CPT/HCPCS: 59025; 81001; G0378; G0379

== ENCOUNTER 2020-06-14 22:14 | Inpatient (IN) | payer MEDICAID ==
[~2020-06-14] VITALS: Ht 157.5 cm; Wt 90.7 kg
[2020-06-14 22:51] LABS: BILIRUBIN,URINE NEGATIVE (NEG); CLARITY,URINE CLEAR; COLOR,URINE YELLOW; NITRITE,URINE NEGATIVE (NEG); PH,URINE 7.5 (<5.0-8.0); PROTEIN,URINE NEGATIVE (NEG-TRACE); UROBILINOGEN,URINE 0.2 mg/dL (0.2 mg/dL)
[2020-06-14 23:04] LABS: BACTERIA,URINE FEW /HPF (0-FEW)
[2020-06-15] VITALS (7 sets, daily range): BP systolic 100–125; BP diastolic 50–74
[2020-06-15] MEDS: IV RINGERS,LACTATED 1000ML 1,000 ML IV SCH ×2 (00:02→10:31)
[2020-06-15] MEDS ORDERED: TERBUTALINE 1 MG/ML VIAL. ONE (01:54)
[2020-06-15] MEDS ORDERED: TERBUTALINE 1 MG/ML VIAL. SQ ONE (02:00)
[2020-06-15 04:04] LABS: HEMATOCRIT 35.8 % (36.0-47.0); RED BLOOD COUNT 4.24 x10^6/uL (3.50-5.40); RED CELL DISTRIBUTION WIDTH 15.6 % (11.5-14.5)
[2020-06-15] MEDS ORDERED: FAMOTIDINE 20 MG/2 ML VIAL ONE (04:09)
[2020-06-15] MEDS ORDERED: OXYTOCIN 10 UNIT/ML VIAL. ONE ×2 (04:09→05:06)
[2020-06-15] MEDS ORDERED: ONDANSETRON PF 4 MG/2 ML VIAL. ONE (04:09)
[2020-06-15] MEDS ORDERED: fentaNYL PF VIAL 100 MCG/2 ML VIAL ONE (04:12)
[2020-06-15] MEDS ORDERED: MORPHINE PF 10 MG/10 ML AMPUL. ONE (04:12)
[2020-06-15] MEDS ORDERED: CITRIC ACID/SODIUM CITRATE 30 ML SOLUTION. ONE (04:22)
[2020-06-15] MEDS ORDERED: CITRIC ACID/SODIUM CITRATE 30 ML SOLUTION. PO ONE (04:30)
--- NOTE | 2020-06-15 04:43 | PDOC1 ---
OB - History Hx of Present Care: Good Care Ultrasounds: Normal mid trimester US Obstetrical Complications: None Medical Complications: None Past Family/Social History * Past Medical, Surgical, Family and Obstetric Histories reviewed from chart. Rubella: Immune RPR/VDRL: Negative GBS Status: Negative HBsAG: Negative OB - Chief Complaint & HPI Date of Admission: Date of Admission: Jun 14, 2020 at 22:14 Chief Complaint/History : 3 Para: 2 EGA: 37 Reason for admission: section Indication for : desires repeat Admission Nurse Assessment Rev: Yes OB - Admission Exam Physical Exam Vitals: VS - Last 72 Hours, by Label Date Time Temp Pulse Resp B/P (MAP) Pulse Ox O2 Delivery O2 Flow Rate FiO2 06/15/20 01:59 74 147/81 HEENT: Normal Heart: Regular Rate Lungs: Clear Abdomen: Gravid, Non tender, Soft Extremities: Edema Reflexes: Normal Cervical Dilatation: 3cm Effacement: 75% Station: -3 Membranes: Intact Accelerations: Accelerations Present Decelerations: No decelerations Contractions on Admission: < 5 Minutes Apart Intensity: Moderate Text A: 37 wks IUP Previous c/s x 1 P: ADmit for repeat c/s for labor. ALYCE VELASCO Jr, MD Jun 15, 2020 04:43
--- NOTE | 2020-06-15 05:34 | PDOC4 ---
OB Operative Note Date: Jun 15, 2020 PRE OP DIAGNOSIS: Previoujs C- section (active labor) POST OP DIAGNOSIS: Other (Same) OPERATION PERFORMED: R [facility] Surgeon Dr. Goff Anesthesia: Regional (SPinal) Blood Loss 600 ml Specimen placenta and OB Findings: Position (Vertex), Sex (Male), (8/9), Weight (7 Lb 1 oz), Fluid (Clear), Nuchal Cord (x1) Complications none Additional Remarks Uterine dehiscence 3 cm Pt. stable ALYCE GOFF Jr, MD Jun 15, 2020 05:34
[2020-06-15] MEDS ORDERED: ZOLPIDEM 5 MG TABLET. PO PRN (05:45)
[2020-06-15] MEDS ORDERED: OXYTOCIN 30 UNIT/500 ML PREMIX 500 ML IV PRN (05:45)
[2020-06-15] MEDS ORDERED: KETOROLAC 30 MG/ML VIAL. IV PRN (05:45)
[2020-06-15] MEDS ORDERED: diphenhydrAMINE ORAL ELIXIR 12.5 MG/5 ML ML PO PRN (05:45)
[2020-06-15] MEDS ORDERED: ONDANSETRON PF 4 MG/2 ML VIAL. IV PRN (05:45)
[2020-06-15] MEDS ORDERED: MAG HYDROX/ALUMINUM HYD/SIMETH 30 ML ORAL.SUSP PO PRN (05:45)
[2020-06-15] MEDS ORDERED: 0.9 % SODIUM CHLORIDE 10 ML DISP.SYRIN. IV PRN (05:45)
[2020-06-15] MEDS ORDERED: DOCUSATE SODIUM 100 MG CAPSULE. PO PRN (05:45)
[2020-06-15] MEDS: KETOROLAC 30 MG/ML VIAL. IV PRN ×3 (06:41→18:19)
--- NOTE | 2020-06-15 07:53 | OP ---
DATE OF SURGERY: 06/14/2020 PREOPERATIVE DIAGNOSES: 1. A 37 weeks' intrauterine . 2. Previous section x 1. 3. Active labor. POSTOPERATIVE DIAGNOSES: 1. A 37 weeks' intrauterine . 2. Previous section x 1. 3. Active labor. PROCEDURE: Repeat low transverse section. SURGEON: Alyce Goff MD ANESTHESIA: Spinal. ESTIMATED BLOOD LOSS: 600 mL. COMPLICATIONS: None. FINDINGS: Uterine dehiscence of about 3 cm size. Viable male infant, Apgars 8 and 9, weight 7 pounds 1 ounce, 3-vessel cord placenta delivered manually intact. Nuchal cord x 1. SUMMARY: A 25-year-old 3, para 2 at 37 weeks, presented to Labor and Delivery with contractions. She transitioned to early labor with cervical change; therefore, required repeat section. She was counseled on risks, benefits and expectations and voiced clear understanding to proceed. DESCRIPTION OF PROCEDURE: The patient was taken to surgery suite and placed in dorsal supine position. She was prepped with ChloraPrep and draped in a sterile fashion. After adequate anesthesia, elliptical incision was performed with the scalpel to remove the previous Pfannenstiel skin incision scar. Also, the removal was aided with Bovie cautery. The scalpel was utilized once again to dissect down to and through the fascia. The fascia was extended laterally using curved Culp scissors. The superior edge of fascia was grasped with two Nereida clamps and dissected free of the abdominal rectus muscles using blunt dissection along with Bovie cautery. The same process took place inferiorly. The abdominal rectus muscles were dissected bluntly at the midline. Peritoneum was grasped with 2 hemostats and entered sharply with Metzenbaum scissors. This incision was extended superiorly as well as inferiorly. The Clark ring retractor was placed. There was a 3 cm uterine dehiscence that was visualized. Bladder flap was created using sharp dissection with Metzenbaum scissors. A low transverse hysterotomy incision was made with scalpel down to the infant. The hysterotomy incision was extended laterally and superiorly digitally. With the aid of fundal pressure, the 's head was delivered in a smooth atraumatic manner. Nuchal cord x 1 was visualized and reduced. With additional fundal pressure, the anterior shoulder was delivered followed by posterior shoulder and rest of male was delivered. was suctioned with bulb syringe orally and nasally, umbilical cord was clamped twice and cut. Viable male infant was handed to waiting nursing staff. Umbilical cord blood was then obtained. Three-vessel cord and placenta was delivered manually intact. The uterus was then exteriorized and cleared of clot and debris with moist lap. Hysterotomy incision was reapproximated using #1 Vicryl suture in running locked fashion and an imbricated layer of #1 Vicryl suture was utilized in a running fashion for better hemostasis. Uterus palpated firm. Fallopian tubes and ovaries appeared normal bilaterally. Posterior cul-de-sac was cleared of clot and debris with moist lap. The uterus was then returned to the abdomen. Pericolic gutters were cleared of clot and debris with moist lap. Hysterotomy incision was reviewed and was hemostatic. The Clark ring retractor was removed. The peritoneum was reapproximated using #1 Vicryl suture in running fashion. Abdominal rectus muscles were reapproximated using 1 Vicryl suture in running fashion. Fascia was reapproximated using Stratafix in running fashion. Skin was reapproximated using 4-0 Vicryl suture in subcuticular manner. The patient tolerated the procedure well and was taken to recovery room in stable condition. Sponge and needle counts correct x 3. ALYCE GOFF MD DR: URIEL/sharyn JOB#: [id number] / [id number]
[2020-06-15] MEDS: FERROUS SULFATE 325 MG TABLET. PO SCH ×2 (08:00→17:00)
[2020-06-15] MEDS: MULTIVITAMIN with MINERAL TABLET. PO SCH (09:00)
[2020-06-16] MEDS: KETOROLAC 30 MG/ML VIAL. IV PRN (00:22)
[2020-06-16 00:28] VITALS: BP 109/51
[2020-06-16 05:15] VITALS: BP 118/87
[2020-06-16 06:07] LABS: BASO % 0 % (0-3); EOS # 0.1 x10^3/uL (0.0-0.7); EOS % 2 % (0-3); HEMATOCRIT 30.2 % (36.0-47.0); HEMOGLOBIN 10.1 g/dL (12.0-15.5); LYMPH # 1.4 x10^3/uL (1.0-4.8); LYMPH % 20 % (24-48); MEAN CORPUSCULAR HEMOGLOBIN 28 pg (25-35); MEAN CORPUSCULAR HGB CONC 33 g/dL (31-37); MEAN CORPUSCULAR VOLUME 85 fL (79-100); MONO # 0.6 x10^3/uL (0.0-1.1); MONO % 9 % (0-9); NEUT # 5.2 x10^3/uL (1.8-7.7); NEUT % 70 % (31-73); PLATELET COUNT 172 x10^3/uL (140-400); RED BLOOD COUNT 3.56 x10^6/uL (3.50-5.40); RED CELL DISTRIBUTION WIDTH 15.6 % (11.5-14.5); WHITE BLOOD COUNT 7.4 x10^3/uL (4.0-11.0)
[2020-06-16] MEDS: FERROUS SULFATE 325 MG TABLET. PO SCH (07:18)
[2020-06-16] MEDS: oxyCODONE/APAP 5/325 1 TAB TABLET PO PRN ×4 (07:26→22:48)
[2020-06-16] MEDS: IBUPROFEN 400 MG TABLET. PO PRN ×3 (07:26→21:58)
[2020-06-16] MEDS: MULTIVITAMIN with MINERAL TABLET. PO SCH (07:27)
[2020-06-16] MEDS: SIMETHICONE 80 MG TAB.CHEW PO PRN ×3 (07:38→23:43)
[2020-06-16 11:30] VITALS: BP 103/47
--- NOTE | 2020-06-16 12:03 | PDOC ---
OB Progress Note Date of Service 06/16/20 Time of Evaluation 1200 Notes Pt. feeling well. No complaints. Lab Laboratory Tests Test 06/14/20 22:16 06/14/20 23:08 06/15/20 03:43 06/16/20 05:22 Urine Collection Type Void Urine Color Yellow Urine Clarity Clear Urine pH 7.5 (<5.0-8.0) Urine Specific Winger 1.010 (1.000-1.030) Urine Protein Negative mg/dL (NEG-TRACE) Urine Glucose (UA) Negative mg/dL (NEG) Urine Ketones (Stick) Negative mg/dL (NEG) Urine Blood Negative (NEG) Urine Nitrite Negative (NEG) Urine Bilirubin Negative (NEG) Urine Urobilinogen Dipstick 0.2 mg/dL (0.2 mg/dL) Urine Leukocyte Esterase Negative (NEG) Urine RBC 1-2 /HPF (0-2) Urine WBC 1-4 /HPF (0-4) Urine Squamous Epithelial Cells Few /LPF Urine Bacteria Few /HPF (0-FEW) Urine Mucus Slight /LPF White Blood Count 8.0 x10^3/uL (4.0-11.0) 7.4 x10^3/uL (4.0-11.0) Red Blood Count 4.24 x10^6/uL (3.50-5.40) 3.56 x10^6/uL (3.50-5.40) Hemoglobin 12.0 g/dL (12.0-15.5) 10.1 g/dL (12.0-15.5) Hematocrit 35.8 % (36.0-47.0) 30.2 % (36.0-47.0) Mean Corpuscular Volume 85 fL (79-100) 85 fL (79-100) Mean Corpuscular Hemoglobin 28 pg (25-35) 28 pg (25-35) Mean Corpuscular Hemoglobin Concent 34 g/dL (31-37) 33 g/dL (31-37) Red Cell Distribution Width 15.6 % (11.5-14.5) 15.6 % (11.5-14.5) Platelet Count 223 x10^3/uL (140-400) 172 x10^3/uL (140-400) Treponema pallidum Antibody Nonreactive (Nonreactive) Coronavirus (PCR) Not detected (Not Detected) SARS-CoV-2 Antigen (Rapid) Negative (NEGATIVE) Neutrophils (%) (Auto) 70 % (31-73) Lymphocytes (%) (Auto) 20 % (24-48) Monocytes (%) (Auto) 9 % (0-9) Eosinophils (%) (Auto) 2 % (0-3) Basophils (%) (Auto) 0 % (0-3) Neutrophils # (Auto) 5.2 x10^3/uL (1.8-7.7) Lymphocytes # (Auto) 1.4 x10^3/uL (1.0-4.8) Monocytes # (Auto) 0.6 x10^3/uL (0.0-1.1) Eosinophils # (Auto) 0.1 x10^3/uL (0.0-0.7) Basophils # (Auto) 0.0 x10^3/uL (0.0-0.2) Laboratory Tests Test 06/16/20 05:22 White Blood Count 7.4 x10^3/uL (4.0-11.0) Red Blood Count 3.56 x10^6/uL (3.50-5.40) Hemoglobin 10.1 g/dL (12.0-15.5) Hematocrit 30.2 % (36.0-47.0) Mean Corpuscular Volume 85 fL (79-100) Mean Corpuscular Hemoglobin 28 pg (25-35) Mean Corpuscular Hemoglobin Concent 33 g/dL (31-37) Red Cell Distribution Width 15.6 % (11.5-14.5) Platelet Count 172 x10^3/uL (140-400) Neutrophils (%) (Auto) 70 % (31-73) Lymphocytes (%) (Auto) 20 % (24-48) Monocytes (%) (Auto) 9 % (0-9) Eosinophils (%) (Auto) 2 % (0-3) Basophils (%) (Auto) 0 % (0-3) Neutrophils # (Auto) 5.2 x10^3/uL (1.8-7.7) Lymphocytes # (Auto) 1.4 x10^3/uL (1.0-4.8) Monocytes # (Auto) 0.6 x10^3/uL (0.0-1.1) Eosinophils # (Auto) 0.1 x10^3/uL (0.0-0.7) Basophils # (Auto) 0.0 x10^3/uL (0.0-0.2) Medications Current Medications Ringer's Solution 1,000 ml @ 125 mls/hr Q8H IV Last administered on 06/15/20at 10:31; Start 06/14/20 at 22:30; Stop 06/15/20 at 21:14; Status DC Terbutaline Sulfate (Brethine) 0.25 mg 1X ONCE SQ Last administered on 06/15/20at 01:59; Start 06/15/20 at 02:00; Stop 06/15/20 at 21:14; Status DC Terbutaline Sulfate (Brethine) 1 mg STK-MED ONCE .ROUTE ; Start 06/15/20 at 01:54; Stop 06/15/20 at 01:54; Status DC Cefazolin Sodium/ Dextrose 50 ml @ 100 mls/hr 1X ONCE IV Last administered on 06/15/20at 04:33; Start 06/15/20 at 04:30; Stop 06/15/20 at 21:14; Status DC Citric Acid/ Sodium Citrate (Bicitra) 30 ml 1X ONCE PO Last administered on 06/15/20at 04:23; Start 06/15/20 at 04:30; Stop 06/15/20 at 21:14; Status DC Ephedrine Sulfate (Akovaz) 50 mg STK-MED ONCE .ROUTE ; Start 06/15/20 at 04:09; Stop 06/15/20 at 04:09; Status DC Ondansetron HCl (Zofran) 4 mg STK-MED ONCE .ROUTE ; Start 06/15/20 at 04:09; Stop 06/15/20 at 04:09; Status DC Famotidine (Pepcid Vial) 20 mg STK-MED ONCE .ROUTE ; Start 06/15/20 at 04:09; Stop 06/15/20 at 04:10; Status DC Oxytocin (Pitocin) 10 unit STK-MED ONCE .ROUTE ; Start 06/15/20 at 04:09; Stop 06/15/20 at 04:10; Status DC Fentanyl Citrate (Fentanyl 2ml Vial) 100 mcg STK-MED ONCE .ROUTE ; Start 06/15/20 at 04:12; Stop 06/15/20 at 04:12; Status DC Morphine Sulfate (Morphine Preservative Free) 10 mg STK-MED ONCE .ROUTE ; Start 06/15/20 at 04:12; Stop 06/15/20 at 04:12; Status DC Citric Acid/ Sodium Citrate (Bicitra) 30 ml STK-MED ONCE .ROUTE ; Start 06/15/20 at 04:22; Stop 06/15/20 at 04:22; Status DC Oxytocin (Pitocin) 10 unit STK-MED ONCE .ROUTE ; Start 06/15/20 at 05:06; Stop 06/15/20 at 05:06; Status DC Ketorolac Tromethamine (Toradol 30mg Vial) 30 mg PRN Q6HRS PRN IV PAIN Last administered on 06/16/20at 00:22; Start 06/15/20 at 05:15; Stop 06/16/20 at 09:03; Status DC Sodium Chloride (Normal Saline Flush) 3 ml QSHIFT PRN IV AFTER MEDS AND BLOOD DRAWS; Start 06/15/20 at 05:45; Stop 06/15/20 at 21:14; Status DC Oxytocin 500 ml @ 125 mls/hr CONT PRN IV EXCESSIVE POST- BLEEDING; Start 06/15/20 at 05:45; Stop 06/15/20 at 13:44; Status DC Ibuprofen (Motrin) 800 mg PRN Q8HRS PRN PO INFLAMMATION Last administered on 06/16/20at 07:26; Start 06/15/20 at 05:45 Ondansetron HCl (Zofran) 4 mg PRN Q6HRS PRN IV NAUSEA/VOMITING; Start 06/15/20 at 05:45; Stop 06/15/20 at 21:14; Status DC Docusate Sodium (Colace) 100 mg PRN BID PRN PO CONSTIPATION Last administered on 06/16/20at 07:26; Start 06/15/20 at 05:45 Al Hydroxide/Mg Hydroxide (Mylanta Plus Xs) 30 ml PRN Q4HRS PRN PO HEARTBURN / GAS; Start 06/15/20 at 05:45 Simethicone (Gas-X) 80 mg PRN AFTMEALHC PRN PO GAS / BLOATING Last administered on 06/16/20at 07:38; Start 06/15/20 at 05:45 Diphenhydramine HCl (Benadryl Oral Elixir) 12.5 mg PRN Q6HRS PRN PO ITCHING Last administered on 06/15/20at 06:39; Start 06/15/20 at 05:45 Ferrous Sulfate (Feosol) 325 mg BIDWMEALS PO ; Start 06/15/20 at 08:00; Stop 06/16/20 at 07:19; Status DC Zolpidem Tartrate (Ambien) 5 mg PRN QHS PRN PO INSOMNIA, MAY REPEAT X1; Start 06/15/20 at 05:45 Oxycodone/ Acetaminophen (Percocet 5/325) 2 tab PRN Q4HRS PRN PO MODERATE PAIN, SEVERE PAIN Last administered on 06/16/20at 07:26; Start 06/15/20 at 05:45 Ketorolac Tromethamine (Toradol 30mg Vial) 30 mg PRN Q6HRS PRN IV INFLAMMATION/PAIN; Start 06/15/20 at 05:45; Stop 06/20/20 at 05:44 Multivitamins (Thera M Plus) 1 tab DAILY PO Last administered on 06/16/20at 07:27; Start 06/15/20 at 09:00 Active Scripts Active Macrobid 100 Mg Capsule (Nitrofurantoin Monohyd/M-Cryst) 100 Mg Capsule 1 Cap PO BID 7 Days Dok (Docusate Sodium) 100 Mg Capsule 100 Mg PO PRN BID PRN Percocet 5-325 Mg Tablet (Oxycodone/Acetaminophen) 1 Each Tablet 2 Tab PO PRN Q4HRS PRN Ibuprofen 400 Mg Tablet 800 Mg PO PRN Q4HRS PRN Ciprodex Otic Suspension (Ciprofloxacin Hcl/Dexameth) 7.5 Ml Drops.susp 4 Drop EACH EAR BID 7 Days Orphenadrine Citrate 100 Mg Tablet.er 100 Mg PO Q12HR [place] 5-325 Tablet (Acetaminophen/Hydrocodone Bitart) 1 Each Tablet 1 Tab PO PRN Q6HRS PRN Reported Tablet (Pnv Cmb#95/Ferrous Fumarate/Fa) 1 Each Tablet 1 Tab PO DAILY Exam Abd: soft, non tender, fundus firm Incision site: clean, dry and intact Assessment POD#1 s/p repeat c/s Plan of Care: Continue current Tx, Mgmt ALYCE VELASCO Jr, MD Jun 16, 2020 12:03
[2020-06-16 15:10] VITALS: BP 113/68
[2020-06-16 22:07] VITALS: BP 112/71
[2020-06-17] MEDS: IBUPROFEN 400 MG TABLET. PO PRN (06:12)
[2020-06-17 06:36] VITALS: BP 113/70
--- NOTE | 2020-06-17 08:45 | PDOC3 ---
OB DISCHARGE SUMMARY DATE OF ADMISSION: 06/14/20 DATE OF DISCHARGE: 06/17/20 REASON FOR ADMISSION: Onset of labor, section INTRAPARTUM PROCEDURES: : Low Cerv Trans DISCHARGE DIAGNOSIS: Term Delivered DISCHARGE INFORMATION: Activity (ad roberth), Diet (regular), Instructions (pelvic rest x 6 ws, no driving x 2 wks, no lifting > 20 lbs. x 6 weeks) HOSPITAL COURSE Term gestation delivered repeat section without complications. ALYCE VELASCO Jr, MD Jun 17, 2020 08:44
[2020-06-17] MEDS ORDERED: OXYC1TAB15 PO (08:47)
[2020-06-17] MEDS ORDERED: IBUP-1027 PO (08:47)
[2020-06-17] MEDS ORDERED: DOCU-153 PO (08:47)
--- NOTE | 2020-06-17 08:47 | DISCH ---
DISCHARGE INSTRUCTIONS Condition on Discharge Condition on Discharge: Stable Activity After Discharge Activity Instructions for Disc: Activity as tolerated Lifting Instructions after Dis: No heavy lifting, No pulling or pushing, Do not lift >10 pounds Exercise Instruction after Dis: Walk 15 min, 3 x per day Driving Instructions after Dis: No driving for 2 weeks Weight Bearing Status after Di: As tolerated Diet after Discharge Diet after Discharge: Regular Diet Texture: Regular Contacting the [facility] after DC Call your doctor for: Concerns you may have Follow-Up Follow up with: F/u Dr. Goff in 2 wks Treatment/Equipment after DC Adaptive Equipment Issued: None ALYCE GOFF Jr, MD Jun 17, 2020 08:47
[2020-06-17] MEDS: MULTIVITAMIN with MINERAL TABLET. PO SCH (09:06)
[2020-06-17] MEDS: oxyCODONE/APAP 5/325 1 TAB TABLET PO PRN (09:06)
[2020-06-17 11:00] VITALS: BP 123/55
== END 2020-06-17 12:16 | disposition home or self-care (01) | DRG 788 ==
LOC: 3 SO LND 22:14 → OBSVTOIN 22:14 → 3 NORTH 06-15 08:10
PROVIDERS: ADMIT Obstetrics & Gynecology; ATTEND Obstetrics & Gynecology
PROC: 10D00Z1 Extraction of Products of Conception, Low, Open Approach (ICD-10-PCS; principal; 2020-06-14)
DX: O34.211 Maternal care for low transverse scar from previous cesarean delivery (principal); O69.81X0 Labor and delivery complicated by cord around neck, without compression, not applicable or unspecified; O90.1 Disruption of perineal obstetric wound; Z20.822 Contact with and (suspected) exposure to COVID-19; Z3A.37 37 weeks gestation of pregnancy; Z37.0 Single live birth
CPT/HCPCS: 36415; 81001; 85025; 85027; 86592; 86850; 86900; 86901; 87426; 88307; J0690; J1885; J2274; J2405; J2590; J3010; J3105; J3490; J7120; U0003; G0378

== ENCOUNTER 2020-12-16 15:06 | Emergency (ER) | payer MEDICAID ==
[~2020-12-16] VITALS: Ht 162.6 cm; Wt 79.6 kg
[~2020-12-16 15:06] MED LIST changes: +DOCU-148 PO; -DOCU-153 PO
[2020-12-16 16:13] VITALS: BP 148/73
== END 2020-12-16 19:18 | disposition left against medical advice (07) ==
LOC: ER 15:06
DX: S99.922A Unspecified injury of left foot, initial encounter (principal); Z53.21 Procedure and treatment not carried out due to patient leaving prior to being seen by health care provider; X58.XXXA Exposure to other specified factors, initial encounter; Y93.89 Activity, other specified; Y92.89 Other specified places as the place of occurrence of the external cause; Y99.8 Other external cause status